=== PATIENT | male | born 1985 | race Two or more races ===

== ENCOUNTER → 2016-12-04 | Outpatient (CLI) | payer MEDICAID ==
--- NOTE | 2016-12-04 17:04 | RADIOLOGY REPORT (SQ) ---
EXAM DESCRIPTION: LUMBAR SPINE COMPLETE COMPLETED DATE/TIME: 12/04/2016 1:29 pm REASON FOR STUDY: LOW BACK PAIN M54.5 LOW BACK PAIN COMPARISON: None. NUMBER OF VIEWS: Five views including obliques. TECHNIQUE: AP, lateral, oblique, and sacral radiographic images acquired of the lumbar spine. LIMITATIONS: None. FINDINGS: MINERALIZATION: Normal. SEGMENTATION: Normal. No transitional anatomy. ALIGNMENT: Normal. VERTEBRAE: Maintained height. No fracture or worrisome bone lesion. DISCS: No significant disc space reduction is seen. There is some mild anterior osteophytic lipping at the L2-L3 disc space level. POSTERIOR ELEMENTS: Pedicles and facets are intact. No pars defect or posterior arch defects. HARDWARE: None in the spine. PARASPINAL SOFT TISSUES: Normal. PELVIS: Intact as visualized. No fractures or worrisome bone lesions. SI joints intact. OTHER: No other significant finding. IMPRESSION: No significant vertebral compression or disc space reduction is seen. Mild degenerative changes with anterior osteophytic lipping at the L2-L3 disc space level. COMMENT: None TECHNICAL DOCUMENTATION: JOB ID: [id number] [employer]- All Rights Reserved
== END ==
LOC: OD 13:04
PROVIDERS: ATTEND Physician Assistant
DX: M54.5 Low back pain (principal)
CPT/HCPCS: 72110

== ENCOUNTER 2017-05-15 22:26 | Emergency (ER) | payer MEDICAID ==
[2017-05-15] MEDS ORDERED: CIPROFLOXACIN HCL 500 MG TABLET PO ONE (23:45)
--- NOTE | 2017-05-15 23:52 | ER Document Report ---
HPI - HPI Onset: Other - Thursday Pain Level: 1 Notes: Patient is a 32-year-old male who presents with a complaint of a possible wound infection to his left wrist. Patient states that 4 days ago he cut his wrist with metal while working on his car. Patient states he then that evening got into a hot tub. Patient reports that he was seen at urgent care on and placed on Keflex and instructed to use bacitracin. Patient states that the wound started getting worse and started draining, patient then stopped taking the Keflex as he was concerned he was having a reaction. Patient does not know when his last tetanus shot was but states that it was greater than 5 years. Patient reports past medical history of sleep apnea, borderline hypertension and seasonal allergies. Past Medical History - General Information source: Patient - Social History Smoking Status: Current Every Day Smoker Frequency of alcohol use: Occasional Drug Abuse: None Lives with: Family Family History: Reviewed & Not Pertinent - Past Medical History Cardiac Medical History: Reports: Hx Hypertension - "borderline" Pulmonary Medical History: Reports: Hx Sleep Apnea - Immunizations Hx Diphtheria, Pertussis, Tetanus Vaccination: No Vertical Provider Document - CONSTITUTIONAL Agree With Documented VS: Yes Exam Limitations: No Limitations - INFECTION CONTROL TRAVEL OUTSIDE OF THE [place] IN LAST 30 DAYS: No - NECK Neck: Normal Inspection - RESPIRATORY Respiratory: Breath Sounds Normal - CARDIOVASCULAR Cardiovascular: Regular Rate, Regular Rhythm Pulses: Normal: Radial - DERM Integumentary: Warm - Cellulitis with erythema to inner left wrist with weeping of clear fluid Notes: Approximately 3 cm x 3 cm area of erythema noted to left wrist, non-fluctuant and non-indurated. Darker center, with blistering on the outer edges with mild weeping. One isolated blister to second digit where patient also reports placing bacitracin. Course - Re-evaluation Re-evalutation: Left wrist appears to have a localized cellulitis to left wrist as well as a allergic reaction, possibly to bacitracin. Will update patient's Tdap as he is unsure of when this was last given. Will add antibiotic coverage for Pseudomonas as patient does state that he was in a hot tub with the open wound. Return discussions provided patient to include increasing pain, fever, streaking up the arm or significant increase in the size of the cellulitis. - Vital Signs Vital signs: Temp Pulse Resp BP Pulse Ox 98.7 F 84 18 142/81 H 95 04/06/18 22:48 05/15/17 22:48 05/15/17 22:48 05/15/17 22:48 05/15/17 22:48 Discharge - Discharge Clinical Impression: Cellulitis of wrist, Allergic dermatitis Condition: Stable Disposition: HOME, SELF-CARE Instructions: Soap Cleansing ([facility]), Tetanus Immunization Given ([facility]) Additional Instructions: The wound on your forearm has developed into cellulitis and you most likely experiencing an allergic reaction to the bacitracin ointment. Please do not use any bacitracin on the wound. Please continue to take the loratadine and keflex, start taking [id number] Pepcid. You have been given the first dose of your antibiotic tonight, please fill this prescription and start taking the morning. Return to the emergency department if you develop fever, your wound increases significantly in size, or you develop some red streaking up your arm. Prescriptions: Ciprofloxacin HCl [Cipro 500 mg Tablet] 500 mg PO BID #14 tablet Referrals: CHERY CABALLERO PA-C [Primary Care Provider] - Follow up as needed
[2017-05-15] MEDS ORDERED: DIPH/PERTUSS(ACELL)/TETANUS VAC/PF 0.5 ML SYR (>=10YO) IM ONE (23:53)
[2017-05-16 00:49] VITALS: BP 144/81
== END 2017-05-16 00:49 | disposition home or self-care (01) ==
LOC: ER 22:26
DX: L03.114 Cellulitis of left upper limb (principal); L30.8 Other specified dermatitis; F17.200 Nicotine dependence, unspecified, uncomplicated; Z23 Encounter for immunization
CPT/HCPCS: 99282; 90471; 90715; J3490